=== PATIENT | male | born 1970 | race Caucasian/White ===

== ENCOUNTER 2018-11-05 | Emergency (ER) | payer SELFPAY ==
[~2018-11-05] VITALS: Ht 160 cm; Wt 58.2 kg
[~2018-11-05] MED LIST: GLIM4TAB55 PO
[2018-11-05 00:03] VITALS: Ht 160 cm; Wt 58.2 kg
[2018-11-05] MEDS ORDERED: SOD CHLORIDE 0.9% 1,000 ML IV STA ×2 (01:42→02:09)
[2018-11-05] MEDS ORDERED: DIPHTH/TET/ACEL PERTUSS (ADULT) 0.5 ML VIAL IM* ONE (02:30)
[2018-11-05] MEDS ORDERED: LIDOCAINE 1% (MDV) 20 ML INJ SC ONE (02:30)
--- NOTE | 2018-11-05 02:43 | ERD ---
ER Documentation Chief Complaint Chief Complaint Pt fell walking to restroom and drank tonight HPI This is a 47-year-old male who presents with active alcohol intoxication, who sustained a fall, while intoxicated. He was brought in by EMS. He states that he does not drink regularly, he denies any abdominal pain nausea or vomiting. He does not have any chest pain or shortness of breath. ROS All systems reviewed and are negative except as per history of present illness. Medications Home Meds Reported Medications Glimepiride* (Amaryl*) 4 Mg Tablet, 4 MG PO DAILY 08/31/11 Allergies Allergies: Coded Allergies: No Known Allergy (Unverified , 08/31/11) PMhx/Soc History of Surgery: Yes (APPY) Anesthesia Reaction: No Hx Neurological Disorder: No Hx Respiratory Disorders: No Hx Cardiac Disorders: No Hx Psychiatric Problems: No Hx Miscellaneous Medical Probl: Yes Hx Alcohol Use: Yes (DAILY. 6 BEERS TODAY) Hx Substance Use: No Hx Tobacco Use: No Smoking Status: Never smoker Physical Exam Vitals Vital Signs Date Temp Pulse Resp B/P (MAP) Pulse Ox O2 O2 Flow FiO2 Time Delivery Rate 11/05/18 97.8 87 16 163/78 100 00:03 (106) Physical Exam Const: Intoxicated with EtOH, well-developed nourished, nontoxic, alert and awake Head: Atraumatic, there is no scalp hematomas, there is no periorbital ecchymosis. Midface is stable, there is a superficial 1 cm laceration noted over the upper lip, Eyes: Normal Conjunctiva, pupils equal round ENT: Normal External Ears, Nose and Mouth. Neck: Full range of motion. No meningismus. Resp: Clear to auscultation bilaterally Cardio: Regular rate and rhythm, no murmurs Abd: Soft, non tender, non distended, no rebound or guarding, no McBurney's point tenderness, negative Carroll sign. Normal bowel sounds Skin: No petechiae or rashes Back: No midline or flank tenderness Ext: No cyanosis, or edema Neur: Awake and alert Psych: Normal Mood and Affect Result Diagram: 11/05/18 0054 11/05/18 0054 Results 24 hrs Laboratory Tests Test 11/05/18 00:54 White Blood Count 6.6 10^3/ul Red Blood Count 4.24 10^6/ul Hemoglobin 14.0 g/dl Hematocrit 39.4 % Mean Corpuscular Volume 92.9 fl Mean Corpuscular Hemoglobin 33.0 pg Mean Corpuscular Hemoglobin Concent 35.5 g/dl Red Cell Distribution Width 12.1 % Platelet Count 141 10^3/UL Mean Platelet Volume 11.0 fl Immature Granulocytes % 0.500 % Neutrophils % 50.8 % Lymphocytes % 40.4 % Monocytes % 6.6 % Eosinophils % 1.1 % Basophils % 0.6 % Nucleated Red Blood Cells % 0.0 /100WBC Immature Granulocytes # 0.030 10^3/ul Neutrophils # 3.4 10^3/ul Lymphocytes # 2.7 10^3/ul Monocytes # 0.4 10^3/ul Eosinophils # 0.1 10^3/ul Basophils # 0.0 10^3/ul Nucleated Red Blood Cells # 0.0 10^3/ul Prothrombin Time 12.5 Sec Prothrombin Time Ratio 1.0 INR International Normalized Ratio 0.92 Activated Partial Thromboplast Time 28.8 Sec Sodium Level 145 mmol/L Potassium Level 4.2 mmol/L Chloride Level 106 mmol/L Carbon Dioxide Level 25 mmol/L Anion Gap 14 Blood Urea Nitrogen 9 mg/dl Creatinine 0.58 mg/dl Est Glomerular Filtrat Rate mL/min > 60 mL/min Glucose Level 368 mg/dl Calcium Level 9.5 mg/dl Total Bilirubin 0.4 mg/dl Direct Bilirubin 0.00 mg/dl Indirect Bilirubin 0.4 mg/dl Aspartate Amino Transf (AST/SGOT) 144 IU/L Alanine Aminotransferase (ALT/SGPT) 132 IU/L Alkaline Phosphatase 269 IU/L Troponin I < 0.012 ng/ml Total Protein 8.4 g/dl Albumin 4.5 g/dl Globulin 3.90 g/dl Albumin/Globulin Ratio 1.15 Lipase 734 U/L Urine Opiates Screen Negative Urine Barbiturates Negative Urine Amphetamines Screen Negative Urine Benzodiazepines Screen Negative Urine Cocaine Screen Negative Urine Cannabinoids Negative Ethyl Alcohol Level 306.0 mg/dl Current Medications Medications Dose Sig/Jenniffer Start Time Status Last (Trade) Ordered Route PRN Stop Time Admin Dose Reason Admin Sodium 1,000 ml @ Q1H STAT 11/05/18 11/05/18 Chloride 1,000 mls/hr IV 01:42 11/05/18 02:22 02:41 Sodium 1,000 ml @ Q1H STAT 11/05/18 11/05/18 Chloride 1,000 mls/hr IV 02:09 11/05/18 02:23 03:08 Diphtheria/ 0.5 ml ONCE ONCE 11/05/18 DC 11/05/18 Tetanus/Acell IM* 02:30 11/05/18 02:24 Pertussis 02:31 (Adacel) Lidocaine 20 ml ONCE ONCE 11/05/18 DC (Xylocaine SC 02:30 11/05/18 1% (Mdv) 20 02:31 ml) Procedures/MDM This is a 47-year-old male who presents for evaluation of alcohol intoxication. Given alcohol intoxication and evidence of trauma, a CT brain, face and C-spine were ordered, all of which were negative for acute injury. Additionally noted that the patient's LFTs were elevated, and he had an elevated left lipase, CT abdomen pelvis was unremarkable. The patient had self had no abdominal pain, and had no clinical signs or symptoms of acute pancreatitis. His laceration was repaired without complication, I discussed the patient lab findings with him, and recommended outpatient follow-up, particularly for his LFTs. At discharge the patient was in no distress. EKG: Rate/Rhythm: Normal Sinus Rhythm QRS, ST, T-waves: No changes consistent w/ acute ischemia Impression: No evidence of ischemia or arrhythmia Departure Diagnosis: Primary Impression: Alcoholic intoxication Complication of substance-induced condition: uncomplicated Qualified Codes: F10.920 - Alcohol use, unspecified with intoxication, uncomplicated Additional Impressions: Transaminitis Laceration Condition: Stable SABINE HAYDEN MD Nov 05, 2018 02:43
[2018-11-05 03:50] VITALS: BP 148/81; PULSE 81; RESP 19
== END 2018-11-05 03:50 | disposition home or self-care (01) ==
LOC: E/R
DX: S01.511A Laceration without foreign body of lip, initial encounter (principal); F10.920 Alcohol use, unspecified with intoxication, uncomplicated; R74.0 Nonspecific elevation of levels of transaminase and lactic acid dehydrogenase [LDH]; W18.39XA Other fall on same level, initial encounter; Y92.9 Unspecified place or not applicable; Z23 Encounter for immunization
CPT/HCPCS: 12011; 70450; 70486; 71045; 72125; 74176; 80053; 80307; 83690; 84484; 85025; 85610; 85730; 90715; 93005; J7030; 36415; 90471

== ENCOUNTER 2018-11-09 18:37 | Emergency (ER) | payer SELFPAY ==
[~2018-11-09] VITALS: Ht 157.5 cm; Wt 59.0 kg
[2018-11-09 18:40] VITALS: BP 161/80; PULSE 75; RESP 18; Ht 157.5 cm; Wt 59.0 kg
--- NOTE | 2018-11-09 19:28 | ERD ---
ER Documentation Chief Complaint Chief Complaint SUTURE REMOVAL, UPPER LIP HPI 47-year-old male presents for suture removal. He was here about 5 days ago, had lip laceration which was repaired with stitches. Currently patient states that he has minimal pain. Denies fever. States that the wound is healing well and he would like to stitches out. ROS All systems reviewed and are negative except as per history of present illness. Medications Home Meds Reported Medications Glimepiride* (Amaryl*) 4 Mg Tablet, 4 MG PO DAILY 08/31/11 Allergies Allergies: Coded Allergies: No Known Allergy (Unverified , 08/31/11) PMhx/Soc History of Surgery: Yes (APPY) Anesthesia Reaction: No Hx Neurological Disorder: No Hx Respiratory Disorders: No Hx Cardiac Disorders: No Hx Psychiatric Problems: No Hx Miscellaneous Medical Probl: Yes Hx Alcohol Use: Yes (DAILY. 6 BEERS TODAY) Hx Substance Use: No Hx Tobacco Use: No FmHx Family History: No coronary disease Physical Exam Vitals Vital Signs Date Temp Pulse Resp B/P (MAP) Pulse Ox O2 O2 Flow FiO2 Time Delivery Rate 11/09/18 98.1 75 18 161/80 99 18:40 (107) Physical Exam Const: No acute distress Head: Atraumatic Eyes: Normal Conjunctiva ENT: Normal External Ears, Nose, stitches noted over the middle part of the upper lip, clean dry intact, there is no active bleeding or pus drainage. Neck: Full range of motion. No meningismus. Resp: Clear to auscultation bilaterally Cardio: Regular rate and rhythm, no murmurs Skin: No petechiae or rashes Ext: No cyanosis, or edema Neur: Awake and alert Psych: Normal Mood and Affect Procedures/MDM Medical Decision Making: Patient presents for suture removal for sutures placed for the laceration about 5 days ago. Patient appeared well on physical exam. The suture site clean dry and intact. No signs of infection. Sutures removed in the ER. Suture Removal by me: Sutures removed with tweezers and scissors without incident. Wound shows no evidence of infection, foreign body, neurologic injury, vascular injury, open joint or tendon laceration. Patient to follow up PRN. Patient advised to follow up with PCP in 1-2 days. Patient advised to return to ED for new or worsening symptoms. Patient stable on discharge from the ED. Disclaimer: Inadvertent spelling and grammatical errors are likely due to EHR/dictation software use and do not reflect on the overall quality of patient care. Also, please note that the electronic time recorded on this note does not necessarily reflect the actual time of the patient encounter. Departure Diagnosis: Primary Impression: Encounter for removal of sutures Condition: Fair Patient Instructions: Suture Removal, No Complication Referrals: [facility] YOU HAVE RECEIVED A MEDICAL SCREENING EXAM AND THE RESULTS INDICATE THAT YOU DO NOT HAVE A CONDITION THAT REQUIRES URGENT TREATMENT IN THE EMERGENCY DEPARTMENT. FURTHER EVALUATION AND TREATMENT OF YOUR CONDITION CAN WAIT UNTIL YOU ARE SEEN IN YOUR DOCTORS OFFICE WITHIN THE NEXT 1-2 DAYS. IT IS YOUR RESPONSIBILITY TO MAKE AN APPOINTMENT FOR FOLOW-UP CARE. IF YOU HAVE A PRIMARY DOCTOR --you should call your primary doctor and schedule an appointment IF YOU DO NOT HAVE A PRIMARY DOCTOR YOU CAN CALL OUR PHYSICIAN REFERRAL HOTLINE AT IF YOU CAN NOT AFFORD TO SEE A PHYSICIAN YOU CAN CHOSE FROM THE FOLLOWING [facility] [address] [facility] [address] [facility] [address] [facility] [address] [facility] [address] [facility] [facility]. [address] Additional Instructions: Call your primary care doctor TOMORROW for an appointment during the next 1-2 days.See the doctor sooner or return here if your condition worsens before your appointment time. MARISSA REY DO Nov 09, 2018 19:28
== END 2018-11-09 19:06 | disposition home or self-care (01) ==
LOC: E/R 18:37
DX: Z48.02 Encounter for removal of sutures (principal); E11.9 Type 2 diabetes mellitus without complications; Z79.84 Long term (current) use of oral hypoglycemic drugs
CPT/HCPCS: 99281